=== PATIENT | female | born 1955 | race Caucasian/White ===

== ENCOUNTER 2017-07-22 12:27 | Outpatient (CLI) | payer BC ==
--- NOTE | 2017-07-23 09:05 | MRI ---
MRI LEFT SHOULDER WITHOUT CONTRAST: HISTORY: M25.512, left shoulder pain. COMPARISON: None. FINDINGS: Biceps Tendon: Moderate extraarticular biceps tenosynovitis. There is interstitial tearing in the in traarticular biceps tendon. Labrum: There is extensive degenerative signal throughout the superior labrum. There is tearing of the anterior inferior, and posterior inferior labrum. This appears chronic in nature. 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 Rotator Cuff: There is high-grade bursal surface tear of the footprint anterior 1 cm supraspinatus t endon. There is extensive bursal surface fraying and interstitial tearing of the infraspinatus tendo n. A full-thickness perforation is not appreciated. No significant retracted fibers. Muscles: The muscle bulk is normal. Bones: Type I acromion. Moderate degenerative disease of the acromioclavicular joint. There are solo bchondral cysts of the inferior and posterior inferior glenoid with osteophyte formation. Soft Tissues: Moderate subacromial/subdeltoid bursal effusion. IMPRESSION: 1. High-grade bursal surface tear of the anterior 1 cm fibers of the supraspinatus tendon without fu ll-thickness perforation. 2. Extensive bursal surface fraying and interstitial tearing of the infraspinatus tendon without ful l-thickness perforation. 3. Extensive degenerative signal throughout the labrum. There is tearing of the posterior inferior and inferior labrum as well as degeneration superior labrum. There is associated subchondral edema a nd osteophyte formation of the anterior, inferior, and posterior glenoid. 4. Posterior humeral head decentering upon the glenoid. 5. Moderate subacromial/subdeltoid bursal effusion. 6. Mild attrition and moderate interstitial tearing of the intraarticular biceps tendon. POS: OFF
== END 2017-07-22 12:28 | disposition home or self-care (01) ==
LOC: SCSMRI 12:27
PROVIDERS: ATTEND Orthopaedic Surgery
DX: M25.512 Pain in left shoulder (principal); M75.102 Unspecified rotator cuff tear or rupture of left shoulder, not specified as traumatic; S43.402A Unspecified sprain of left shoulder joint, initial encounter

== ENCOUNTER 2018-05-11 08:41 | Outpatient (CLI) | payer BC | END 2018-05-11 08:42 | disposition home or self-care (01) | LOC: BICMAMMO 08:41 | PROVIDERS: ATTEND Obstetrics & Gynecology | DX: Z12.31 Encounter for screening mammogram for malignant neoplasm of breast (principal) | CPT/HCPCS: 77063; 77067 ==

== ENCOUNTER 2019-04-25 08:17 | Outpatient (CLI) | payer MEDICARE ==
--- NOTE | 2019-04-25 10:00 | CT ---
CT OF THE CHEST, ABDOMEN, AND PELVIS WITH AND WITHOUT IV CONTRAST: DATE: 04/25/2019. COMPARISON: None. HISTORY: Endometrial cancer. TECHNIQUE: Serial axial CT imaging is obtained at 5 mm intervals from the thoracic inlet through the pubic symph ysis with and without IV contrast. Coronal and sagittal reformatted imaging obtained. FINDINGS: No lymphadenopathy noted within the chest, significant pleural, pericardial, or mediastinal fluid is seen. Minimal linear density noted in the inferior lateral lingula. Mild lateral right basilar linear densi ty as well. No dominant pulmonary parenchymal mass lesion or nodule. No endobronchial lesion. Vascular structures of the chest appear grossly unremarkable. Osseous structures of the chest demonstrate no acute findings. No free intraperitoneal air or fluid. The liver, gallbladder, spleen, pancreas, adrenal glands, and k idneys demonstrate no acute findings. Subcentimeter hypodensity noted in the upper pole of the left kidney, too small to characterize. The uterus appears surgically absent. There is no evidence for bowel inflammatory change or bowel obstruction. Probable small sliding-type hiatal hernia noted. Vascular structures of the abdomen and pelvis appear patent. Mild atherosclerotic calcification of th e infrarenal abdominal aorta noted. No lymphadenopathy is appreciated within the abdomen or pelvis. There are subcentimeter pelvic sidewa ll nodes and left para-aortic nodes. Osseous structures of the abdomen/pelvis demonstrate lower lumbar spine facet hypertrophy with no wor risome lytic or blastic lesions. IMPRESSION: No CT evidence of metastatic disease within the chest, abdomen, or pelvis. Transcribed Date/Time: 04/25/2019 10:11 AM
--- NOTE | 2019-04-28 15:19 | CT ---
CT OF THE CHEST, ABDOMEN, AND PELVIS WITH AND WITHOUT IV CONTRAST: DATE: 04/25/2019. COMPARISON: None. HISTORY: Endometrial cancer. TECHNIQUE: Serial axial CT imaging is obtained at 5 mm intervals from the thoracic inlet through the pubic symph ysis with and without IV contrast. Coronal and sagittal reformatted imaging obtained. FINDINGS: No lymphadenopathy noted within the chest, significant pleural, pericardial, or mediastinal fluid is seen. Minimal linear density noted in the inferior lateral lingula. Mild lateral right basilar linear densi ty as well. No dominant pulmonary parenchymal mass lesion or nodule. No endobronchial lesion. Vascular structures of the chest appear grossly unremarkable. Osseous structures of the chest demonstrate no acute findings. No free intraperitoneal air or fluid. The liver, gallbladder, spleen, pancreas, adrenal glands, and k idneys demonstrate no acute findings. Subcentimeter hypodensity noted in the upper pole of the left kidney, too small to characterize. The uterus appears surgically absent. There is no evidence for bowel inflammatory change or bowel obstruction. Probable small sliding-type hiatal hernia noted. Vascular structures of the abdomen and pelvis appear patent. Mild atherosclerotic calcification of th e infrarenal abdominal aorta noted. No lymphadenopathy is appreciated within the abdomen or pelvis. There are subcentimeter pelvic sidewa ll nodes and left para-aortic nodes. Osseous structures of the abdomen/pelvis demonstrate lower lumbar spine facet hypertrophy with no wor risome lytic or blastic lesions. IMPRESSION: No CT evidence of metastatic disease within the chest, abdomen, or pelvis. Transcribed Date/Time: 04/28/2019 3:18 PM
== END 2019-04-25 08:18 | disposition home or self-care (01) ==
LOC: SCSCT 08:17
PROVIDERS: ATTEND Obstetrics & Gynecology Gynecologic Oncology
DX: C54.0 Malignant neoplasm of isthmus uteri (principal); M54.5 Low back pain; R10.2 Pelvic and perineal pain
CPT/HCPCS: 71270; 74178; 82565

== ENCOUNTER 2021-10-24 05:48 | Day surgery (SDC) | payer MEDICARE ==
[2021-10-21 10:46] VITALS: BMI 33.6
[2021-10-24] MEDS ORDERED: Acetaminophen 500 MG TAB ONE (06:27)
[2021-10-24] MEDS ORDERED: Lidocaine 1% w/Epinephrine 1:100K 20 ML VIAL ONE (06:38)
[2021-10-24] MEDS ORDERED: Bupivacaine 0.25% 10 ML VIAL ONE (06:38)
[2021-10-24] MEDS ORDERED: Fentanyl 100 MCG/2 ML VIAL ONE (06:50)
[2021-10-24] MEDS ORDERED: Lidocaine 2% Jelly 5 ML TUBE ONE (06:52)
[2021-10-24] MEDS ORDERED: Levofloxacin 500 mg/D5W 100 ml Premix Bag ONE (07:58)
[2021-10-24] MEDS ORDERED: Midazolam HCl 2 mg/2 ml Vial ONE (08:01)
[2021-10-24] MEDS ORDERED: Dexamethasone 20 MG/5 ML VIAL ONE (08:04)
[2021-10-24] MEDS ORDERED: Ketorolac Tromethamine 30 MG/ML VIAL ONE (08:04)
[2021-10-24] MEDS ORDERED: Ondansetron PF 4 MG/2 ML Vial ONE (08:04)
[2021-10-24] MEDS ORDERED: PROPOFOL 200 MG/20 ML VIAL ONE (08:04)
[2021-10-24] MEDS ORDERED: Rocuronium Bromide 10 MG/ML (10ML VIAL) ONE (08:04)
[2021-10-24] MEDS ORDERED: Lidocaine 1% PF 5 ML VIAL ONE (08:04)
== END 2021-10-24 11:02 | disposition home or self-care (01) ==
LOC: SDC 05:48
PROVIDERS: ATTEND Surgery
PROC: 0FT44ZZ Resection of Gallbladder, Percutaneous Endoscopic Approach (ICD-10-PCS; principal; 2021-10-24)
DX: K81.1 Chronic cholecystitis (principal); K82.8 Other specified diseases of gallbladder; E03.9 Hypothyroidism, unspecified; M19.90 Unspecified osteoarthritis, unspecified site; E78.5 Hyperlipidemia, unspecified; I10 Essential (primary) hypertension; E78.00 Pure hypercholesterolemia, unspecified; Z79.890 Hormone replacement therapy; Z79.899 Other long term (current) drug therapy; Z88.0 Allergy status to penicillin; Z88.5 Allergy status to narcotic agent
CPT/HCPCS: 47562; C1713 ×2; 88304; J1100; J1885; J1956; J2250; J2405; J2704; J3010; S0020

== ENCOUNTER 2023-02-09 12:59 | Outpatient (CLI) | payer MEDICARE | END 2023-02-09 13:00 | disposition home or self-care (01) | LOC: BICCT 12:59 | PROVIDERS: ATTEND Internal Medicine Endocrinology, Diabetes & Metabolism | DX: E04.1 Nontoxic single thyroid nodule (principal); D35.01 Benign neoplasm of right adrenal gland; D17.79 Benign lipomatous neoplasm of other sites | CPT/HCPCS: 74170; 82565 ==

== ENCOUNTER 2023-08-17 08:04 | Outpatient (CLI) | payer MEDICARE | END 2023-08-17 08:05 | disposition home or self-care (01) | LOC: NM 08:04 | PROVIDERS: ATTEND Family Medicine | DX: E83.52 Hypercalcemia (principal) | CPT/HCPCS: 78072; A9500 ==